=== PATIENT | male | born 1975 | race Caucasian/White ===

== ENCOUNTER 2018-09-02 10:35 | Outpatient (CLI) | payer BC ==
--- NOTE | 2018-09-02 10:59 | RAD ---
FFlexion, extension and neutral lateral projections of the lumbar spine. (3 images total). INDICATION: Mid to low back pain with radiation into the right hip FINDINGS: There is very mild disc degenerative disease at L4-5. No abnormal translational motion is e vident. IMPRESSION: No abnormal translational motion demonstrated. Transcribed Date/Time: 09/02/2018 11:15 AM
--- NOTE | 2018-09-02 11:15 | CT ---
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 Mid back pain radiating to the right hip COMPARISON: None Correlation: MRI lumbar spine 05/03/2012 FINDINGS: No retroperitoneal mass, lymphadenopathy or hematoma. Symmetric attenuation of the psoas mu scles Visualized solid organs are grossly unremarkable. Note is made of a horseshoe kidney, without obstruc tive uropathy There are 5 lumbar type vertebral bodies. Vertebral body height is maintained. No fracture. No spondy lolisthesis or spondylolysis Limited evaluation of the contents of the central spinal canal and neural foramina technique T12-L1: No significant central canal stenosis or neural foraminal narrowing L1-L2: No significant central canal stenosis or neural foraminal narrowing L2-L3: No significant central canal stenosis or foraminal narrowing L3-L4: Generalized disc bulge, minimal ligament flavum thickening results in mild central canal steno sis. Bilaterally, foramina are patent L4-L5: Visualized disc bulge. No significant central canal stenosis. Mild right and mild to moderate left foraminal narrowing. L5-S1: No significant central canal stenosis. Neural foramina are patent. IMPRESSION: 1. No lumbar spine fracture. 2. No significant central canal stenosis or neural foraminal narrowing. Likely. [id number] left foraminal narrowing at L4-L5.
== END 2018-09-02 10:36 | disposition home or self-care (01) ==
LOC: TBSIIMAG 10:35
PROVIDERS: ATTEND Neurological Surgery
DX: M54.5 Low back pain (principal); M48.061 Spinal stenosis, lumbar region without neurogenic claudication
CPT/HCPCS: 72100; 72131

== ENCOUNTER 2018-10-12 12:07 | Outpatient (CLI) | payer BC ==
--- NOTE | 2018-10-12 13:31 | MRI ---
MRI RIGHT HIP WITHOUT IV CONTRAST: HISTORY: Right hip pain. TECHNIQUE: Multiplanar, multisequence MRI examination of the right hip is performed. FINDINGS: There is no evidence for abnormal signal to suggest fracture, acute stress injury, or avascular necro sis. There is some minimal abnormal high signal associated with the anterior-superior labrum, concer doug for a small labral tear. The visualized gluteal tendons and common hamstring tendons are unrema rkable. No evidence for acute muscle or tendon injury. IMPRESSION: 1. Evidence for some abnormal signal at the anterior-superior labrum, concerning for a tear. 2. No evidence for other significant acute process. POS: [facility]
== END 2018-10-12 12:08 | disposition home or self-care (01) ==
LOC: SCSMRI 12:07
PROVIDERS: ATTEND Orthopaedic Surgery
DX: M25.551 Pain in right hip (principal)

== ENCOUNTER 2019-06-02 03:03 | Emergency (ER) | payer BC ==
[2019-06-02] MEDS ORDERED: Ondansetron PF 4 MG/2 ML Vial ONE (03:12)
[2019-06-02] MEDS ORDERED: Ketorolac Tromethamine 30 MG/ML VIAL ONE (03:12)
[2019-06-02] MEDS ORDERED: Morphine 4 MG/ML VIAL ONE ×2 (03:12→03:53)
[2019-06-02 03:20] LABS: #Eosinphils 0.1 thou/uL (0.0-0.7); #Lymphocytes 2.4 thou/uL (1.20-3.40); #Monocytes 0.5 thou/uL (0.11-0.59); #Neutrophils 2.9 thou/uL (1.40-6.50); %Basophils 0.5 % (0.0-1.0); %Lymphocytes 40.8 % (21.0-51.0); %Monocytes 7.7 % (0.0-10.0); %Neutrophils 49.1 % (42.0-75.0); Hemoglobin 17.9 g/dL (14.0-18.0); Mean Corpuscular HGB CONC 36.2 g/dL (32.0-36.0); Mean Corpuscular Hemoglobin 32.3 pg (27.0-31.0); Mean Corpuscular Volume 89.3 fL (78.0-98.0); Mean Platelet Volume 7.6 fL (7.4-10.4); Platelet Count 187 thou/uL (130-400); RBC Distribution Width 11.7 % (11.5-14.5); Red Blood Cell (RBC) Count 5.56 mill/uL (4.70-6.10)
[2019-06-02 03:44] LABS: ALT (SGPT) 151 U/L (8-55); AST (SGOT) 73 U/L (5-34); Albumin 4.7 g/dL (3.5-5.0); Alkaline Phosphatase 96 U/L (40-110); Anion Gap 17 mmol/L (10-20); BUN (Urea Nitrogen) 15 mg/dL (8.9-20.6); Bilirubin, Total 0.8 mg/dL (0.2-1.2); Calc. Creatinine Clearance 0 mL/min (70-130); Calcium 9.6 mg/dL (7.8-10.44); Carbon Dioxide 22 mmol/L (22-29); Chloride 106 mmol/L (98-107); Estimated GFR-MDRD 51; Globulin 2.5 g/dL (2.4-3.5); Glucose 116 mg/dL (70-105); Potassium 3.9 mmol/L (3.5-5.1); Protein, Total 7.2 g/dL (6.0-8.3); Sodium 141 mmol/L (136-145)
[2019-06-02 04:40] LABS: Bacteria/HPF None Seen HPF (None Seen); Bilirubin Negative (Negative); Blood, Urine 3+ (Negative); Clarity Clear (Clear); Glucose, Urine (Dipstick) Normal (Negative); Leukocyte Negative Leu/uL (Negative); Nitrite Negative (Negative); Protein, Urine (Dipstick) Negative (Neg-Trace); RBC/HPF Greater than 50 HPF (0-3); Squamous Epithelial 0-3 HPF (0-3); Urobilinogen Normal mg/dL (Less than 2); WBC/HPF 0-3 HPF (0-3)
[2019-06-02] MEDS ORDERED: HYDROcodone/Acetaminophen 5/325 mg Tablet ONE (05:10)
--- NOTE | 2019-06-02 08:25 | CT ---
PRELIMINARY REPORT/[facility]/AFTER HOURS PROCEDURE CT ABDOMEN AND PELVIS WITHOUT CONTRAST: 06/02/2019 3:23 a.m. INDICATION: Left flank pain, sudden onset. TECHNIQUE: Helical CT was performed through the abdomen and pelvis without intravenous or GI contrast administra tion. Coronal and sagittal reconstructions were generated and reviewed. Exam was performed using on e or more of the following dose reduction techniques: automated exposure control, adjustment of the mA and/or kV according to patient size, or use of iterative reconstruction technique. COMPARISON: None. FINDINGS: The lung bases are clear. There is a horseshoe kidney with asymmetric prominence of the left collecting system compatible with mild hydronephrosis. The left ureter shows mild dilatation to a level 2-3 cm below the sacral promon tory. No ureteral or bladder calculi are seen. Urinary bladder is decompressed. Prostate is not en larged. Pelvic phleboliths are seen. Gallbladder is unremarkable. Near the hepatic confluence is a 1.6 x 0.9 cm region of decreased atten uation likely reflecting a parenchymal cyst. Spleen measures 15.0 x 4.5 x 11.3 cm. Pancreas is mild ly atrophic. Adrenal glands are normal in appearance. The abdominal aorta tapers. Inferior vena cava is not flattened. There is no bowel obstruction. Th e appendix is seen and is normal. Circumferential metallic chain sutures in the low rectum are noted . There is no ascites. Osseous structures are unremarkable. IMPRESSION: 1. Horseshoe kidney. 2. Mild left hydroureteronephrosis without an obstructing process identified. This may be due to a recently passed calculus. Clinical follow-up is suggested. 3. Mild splenomegaly. ELECTRONICALLY SIGNED BY: Keith Carroll DO Jun 02, 2019 3:41:38 AM MEDICAL REVIEW SPECIALIST This report is intended for review by the ordering physician only, in accordance of law. If you recei ve this report in error, please call [facility] at [phone]. FINAL REPORT CT ABDOMEN AND PELVIS WITHOUT CONTRAST (EMERGENT AFTER HOURS STUDY): HISTORY: Left flank pain, sudden onset. FINDINGS: ABDOMEN: The lung bases are clear. The liver, spleen, pancreas and gallbladder regions show no focal findings. The spleen is slightly pr ominent at 12.7 cm. The right and left adrenal glands are normal. There is a horseshoe type kidney with mild dilatation o f the left collecting system, some periureteral fat stranding and some mild dilatation at the left ur eter, to the level of the pelvic brim. No obstructing calculus is demonstrated. There is no significa nt periaortic or mesenteric adenopathy. PELVIS: A fat-containing periumbilical hernia is seen. Appendix is normal. Bladder is decompressed bu t there is suggestion of bladder wall thickening. Prostate does not appear significantly enlarged. IMPRESSION: 1. Horseshoe type kidney with left sided hydronephrosis and hydroureter, although there is no obstruc ting calculus. The appearance would suggest the possibility that there has been passage of a stone. T here are also some very tiny punctate calcifications associated with the horseshoe kidney. 2. Suggestion of bladder wall thickening, somewhat difficult to assess due to complete decompression of the bladder. 3. Fat-containing paraumbilical hernia. 4. Borderline spleen size. 5. This report is in agreement with the temporary report issued by [facility]. CODE QA POS: [facility]
== END 2019-06-02 05:00 | disposition home or self-care (01) ==
LOC: ERS 03:03
DX: R10.9 Unspecified abdominal pain (principal); R10.817 Generalized abdominal tenderness
CPT/HCPCS: 74176; 80053; 81003; 81015; 85025; 96361; 96374; 96375; 96376; J1885; J2270; J2405

== ENCOUNTER 2019-06-23 10:17 | Outpatient (CLI) | payer BC ==
--- NOTE | 2019-06-23 12:53 | ULT ---
ULTRASOUND RETROPERITONEUM COMPLETE: (RENAL) 06/23/2019 HISTORY: N13.30, hydronephrosis, unspecified type in a 44-year-old male. FINDINGS: The right and left kidneys are fused at midline in the abdomen. There is no dilation of the right or left renal collecting systems. The urinary bladder has normal, thin gonzalez. IMPRESSION: 1. Horseshoe kidney. 2. No hydronephrosis identified. JN Nitza POS: [facility]
== END 2019-06-23 10:18 | disposition home or self-care (01) ==
LOC: BICULT 10:17
PROVIDERS: ATTEND Family Medicine
DX: N13.30 Unspecified hydronephrosis (principal); Q63.1 Lobulated, fused and horseshoe kidney
CPT/HCPCS: 76770

== ENCOUNTER 2020-10-03 01:45 | Emergency (ER) | payer BC ==
[2020-10-03] MEDS ORDERED: Ketorolac Tromethamine 30 MG/ML VIAL ONE (02:26)
[2020-10-03] MEDS ORDERED: Ondansetron ODT 4 MG TAB ONE ×2 (02:26→02:33)
[2020-10-03] MEDS ORDERED: HYDROcodone/Acetaminophen 5/325 mg Tablet ONE (02:26)
[2020-10-03 02:43] LABS: Bilirubin Negative (Negative); Blood, Urine Negative (Negative); Clarity Clear (Clear); Glucose, Urine (Dipstick) Normal (Negative); Ketone, Urine Negative (Negative); Leukocyte Negative Leu/uL (Negative); Nitrite Negative (Negative); Protein, Urine (Dipstick) Negative (Neg-Trace); Urobilinogen Normal mg/dL (Less than 2); pH, Urine 5.5 (5.0-9.0)
[2020-10-03] MEDS ORDERED: Cyclobenzaprine 10 MG TAB ONE (02:57)
== END 2020-10-03 04:04 | disposition home or self-care (01) ==
LOC: ERS 01:45
DX: M54.5 Low back pain (principal)
CPT/HCPCS: 81003; 96372; 99283; J1885; Q0162

== ENCOUNTER 2021-02-07 10:42 | Outpatient (CLI) | payer BC | END 2021-02-07 10:43 | disposition home or self-care (01) | LOC: BICRAD 10:42 | PROVIDERS: ATTEND Family Medicine | DX: R07.81 Pleurodynia (principal) ==

== ENCOUNTER 2021-07-15 10:38 | Outpatient (CLI) | payer BC | END 2021-07-15 10:39 | disposition home or self-care (01) | LOC: NM 10:38 | PROVIDERS: ATTEND Urology | DX: N13.5 Crossing vessel and stricture of ureter without hydronephrosis (principal); Q63.1 Lobulated, fused and horseshoe kidney | CPT/HCPCS: 78708; A4641; A9562 ==

== ENCOUNTER 2022-01-01 10:31 | Outpatient (CLI) | payer BC | END 2022-01-01 10:32 | disposition home or self-care (01) | LOC: BICULT 10:31 | PROVIDERS: ATTEND Urology | DX: N13.5 Crossing vessel and stricture of ureter without hydronephrosis (principal); N12 Tubulo-interstitial nephritis, not specified as acute or chronic; Q63.1 Lobulated, fused and horseshoe kidney | CPT/HCPCS: 76770 ==

== ENCOUNTER 2022-05-21 14:38 | Outpatient (CLI) | payer BC | END 2022-05-21 14:39 | disposition home or self-care (01) | LOC: BICRAD 14:38 | PROVIDERS: ATTEND Family Medicine | DX: M54.50 Low back pain, unspecified (principal); M25.551 Pain in right hip; M25.552 Pain in left hip; M16.0 Bilateral primary osteoarthritis of hip; M47.816 Spondylosis without myelopathy or radiculopathy, lumbar region | CPT/HCPCS: 72100 ==

== ENCOUNTER 2022-07-01 21:22 | Emergency (ER) | payer BC ==
[2022-07-01] MEDS ORDERED: Morphine 4 MG/ML VIAL ONE (22:02)
[2022-07-01] MEDS ORDERED: Dexamethasone 10 MG/ML VIAL ONE (22:24)
[2022-07-01] MEDS ORDERED: HYDROcodone/Acetaminophen 10/325 mg Tablet ONE (22:24)
== END 2022-07-01 23:13 | disposition home or self-care (01) ==
LOC: ERS 21:22
DX: M54.50 Low back pain, unspecified (principal); Z79.82 Long term (current) use of aspirin
CPT/HCPCS: 96372; 99283; J1100; J2270

== ENCOUNTER 2022-07-02 04:19 | Emergency (ER) | payer BC ==
[2022-07-02] MEDS ORDERED: Diazepam 10 MG/2 ML SYRINGE ONE (05:20)
[2022-07-02] MEDS ORDERED: Morphine 4 MG/ML VIAL ONE (05:20)
[2022-07-02] MEDS ORDERED: Ondansetron PF 4 MG/2 ML Vial ONE ×2 (05:21→05:31)
[2022-07-02] MEDS ORDERED: Acetaminophen 500 MG TAB ONE (05:21)
[2022-07-02] MEDS ORDERED: Ketorolac Tromethamine 30 MG/ML VIAL ONE (05:21)
[2022-07-02 05:57] LABS: #Lymphocytes 0.5 thou/uL (1.20-3.40); #Monocytes 0.1 thou/uL (0.11-0.59); #Neutrophils 10.8 thou/uL (1.40-6.50); %Lymphocytes 4.7 % (21.0-51.0); %Neutrophils 94.3 % (42.0-75.0); Mean Corpuscular HGB CONC 33.9 g/dL (32.0-36.0); Mean Corpuscular Volume 88.5 fl (78.0-98.0); Mean Platelet Volume 7.7 fL (7.4-10.4); Platelet Count 247 10x3/uL (130-400); RBC Distribution Width 12.6 % (11.5-14.5); Red Blood Cell (RBC) Count 5.98 mill/uL (4.70-6.10); White Blood Cell (WBC) Count 11.5 10x3/uL (4.8-10.8)
[2022-07-02 06:18] LABS: ALT (SGPT) 25 U/L (8-55); AST (SGOT) 16 U/L (5-34); Albumin 5.2 g/dL (3.5-5.0); Alkaline Phosphatase 93 U/L (40-110); Anion Gap 18 mmol/L (10-20); BUN (Urea Nitrogen) 18 mg/dL (8.9-20.6); Bilirubin, Total 1.5 mg/dL (0.2-1.2); Calc. Creatinine Clearance 0 mL/min (70-130); Calcium 10.5 mg/dL (7.8-10.44); Carbon Dioxide 20 mmol/L (22-29); Chloride 103 mmol/L (98-107); Estimated GFR 44; Globulin 3.2 g/dL (2.4-3.5); Glucose 169 mg/dL (70-105); Potassium 4.3 mmol/L (3.5-5.1); Protein, Total 8.4 g/dL (6.0-8.3); Sodium 137 mmol/L (136-145)
[2022-07-02 06:45] LABS: Bilirubin Negative (Negative); Blood, Urine 1+ (Negative); Clarity Clear (Clear); Glucose, Urine (Dipstick) Normal (Negative); Ketone, Urine Negative (Negative); Leukocyte Negative Leu/uL (Negative); Mucous/LPF Rare LPF (<2+); Nitrite Negative (Negative); Protein, Urine (Dipstick) 10 mg/dL (Neg-Trace); Specific Gravity, Urine 1.021 (1.002-1.036); Squamous Epithelial None Seen HPF (0-3); Urobilinogen Normal mg/dL (Less than 2); WBC/HPF 0-3 HPF (0-3); pH, Urine 5.5 (5.0-9.0)
[2022-07-02 06:46] LABS: Bacteria/HPF 1+ HPF (None Seen)
== END 2022-07-02 08:41 | disposition home or self-care (01) ==
LOC: ERS 04:19
DX: N13.2 Hydronephrosis with renal and ureteral calculous obstruction (principal)
CPT/HCPCS: 36415; 74176; 80053; 81003; 81015; 85025; 85652; 86140; 96361; 96374; 96375; J1885; J2270; J2405; J3360

== ENCOUNTER 2022-07-11 10:25 | Outpatient (CLI) | payer BC | END 2022-07-11 10:26 | disposition home or self-care (01) | LOC: TBSIIMAG 10:25 | PROVIDERS: ATTEND Family Medicine | DX: M54.50 Low back pain, unspecified (principal); M47.815 Spondylosis without myelopathy or radiculopathy, thoracolumbar region; M47.817 Spondylosis without myelopathy or radiculopathy, lumbosacral region; M47.816 Spondylosis without myelopathy or radiculopathy, lumbar region | CPT/HCPCS: 72148 ==

== ENCOUNTER 2023-07-06 16:10 | Outpatient (CLI) | payer BC ==
[2023-07-06 17:10] LABS: #Eosinphils 0.1 10x3/uL (0.0-0.5); #Monocytes 0.5 10x3/uL (0.0-1.1); #Neutrophils 3.4 10x3/uL (1.5-8.4); %Basophils 0.6 % (0.0-2.0); %Eosinophils 2.6 % (0.0-6.0); %Monocytes 8.5 % (0.0-10.0); %Neutrophils 63.1 % (40.0-75.0); Hematocrit 46.8 % (38.8-50.0); Hemoglobin 16.4 g/dL (13.5-17.5); Mean Corpuscular Hemoglobin 31.2 pg (27.0-33.0); Mean Corpuscular Volume 89.1 fl (81.2-95.1); Mean Platelet Volume 9.9 fl (7.4-10.4); Platelet Count 201 10x3/uL (150-450); RBC Distribution Width 12.3 % (11.5-14.5); Red Blood Cell (RBC) Count 5.25 10x6/uL (4.32-5.72); White Blood Cell (WBC) Count 5.4 10x3/uL (3.5-10.5)
[2023-07-06 17:21] LABS: ALT (SGPT) 23 U/L (8-55); AST (SGOT) 19 U/L (5-34); Albumin 4.8 g/dL (3.5-5.0); Alkaline Phosphatase 85 U/L (40-110); Anion Gap 17 mmol/L (10-20); BUN (Urea Nitrogen) 19 mg/dL (8.9-20.6); Bilirubin, Total 1.3 mg/dL (0.2-1.2); Calc. Creatinine Clearance 0 mL/min (70-130); Calcium 9.3 mg/dL (7.8-10.44); Carbon Dioxide 21 mmol/L (22-29); Chloride 108 mmol/L (98-107); Estimated GFR 84; Globulin 2.3 g/dL (2.4-3.5); Glucose 105 mg/dL (70-105); Potassium 4.3 mmol/L (3.5-5.1); Protein, Total 7.1 g/dL (6.0-8.3); Sodium 142 mmol/L (136-145)
== END 2023-07-06 16:11 | disposition home or self-care (01) ==
LOC: LABBT 16:10
PROVIDERS: ATTEND Internal Medicine Cardiovascular Disease
DX: Z01.812 Encounter for preprocedural laboratory examination (principal); I25.10 Atherosclerotic heart disease of native coronary artery without angina pectoris; R07.9 Chest pain, unspecified
CPT/HCPCS: 80053; 85025

== ENCOUNTER 2023-07-08 06:07 | Day surgery (SDC) | payer BC ==
[2023-07-06 16:41] VITALS: BMI 29.0
[2023-07-08] MEDS ORDERED: Heparin 10,000 UNITS/ 10 ML VIAL ONE (06:23)
[2023-07-08] MEDS ORDERED: Midazolam HCl 2 mg/2 ml Vial ONE (07:09)
[2023-07-08] MEDS ORDERED: fentaNYL 50 mcg/mL 1 mL Vial ONE (07:09)
[2023-07-08] MEDS ORDERED: Iopamidol 370 76% 100 ML VIAL ONE (11:14)
== END 2023-07-08 12:35 | disposition home or self-care (01) ==
LOC: SDC 06:07
PROVIDERS: ATTEND Internal Medicine Cardiovascular Disease
PROC: B200YZZ Plain Radiography of Single Coronary Artery using Other Contrast (ICD-10-PCS; principal; 2023-07-08)
PROC: 4A023N7 Measurement of Cardiac Sampling and Pressure, Left Heart, Percutaneous Approach (ICD-10-PCS; principal; 2023-07-08)
DX: I25.10 Atherosclerotic heart disease of native coronary artery without angina pectoris (principal); R07.9 Chest pain, unspecified; I25.2 Old myocardial infarction; E78.00 Pure hypercholesterolemia, unspecified; Z79.899 Other long term (current) drug therapy
CPT/HCPCS: 93458; 99152; 99153; C1769; C1894; J1644; J2250; J3010; Q9967